=== PATIENT | male | born 1935 | race Caucasian/White ===

== ENCOUNTER 2016-05-28 18:56 | Emergency (ER) | payer OTHER ==
[~2016-05-28] VITALS: Ht 177.8 cm; Wt 73.7 kg
[~2016-05-28 18:56] MED LIST: ADVAIR 100/501 DISK IH; APRISO0.375 GM PO; ATORVASTATIN CA80 MG PO; AUGMENTIN875 MG PO; BUDESONIDE EC3 MG PO; CELEBREX200 MG PO; DAILY VALUE1 EACH PO; DESYREL100 MG PO; ENDOCET 5-3251 EACH PO; FISH OIL 1,001000 M1 PO; FOLIC ACID1 MG PO; MAGNESIUM CITR100 MG PO; PLAVIX75 MG PO; PROTONIX40 MG PO; SPIRIVA1 INHALATI IH; TAMSULOSIN HCL0.4 MG PO; VASOTEC20 MG PO; VITAMIN E400 UNIT PO
[2016-05-28 20:55] LABS: HEMATOCRIT 41.6 % (38.0-50.0); MCH 33.2 PG (29.0-34.0); MCHC 34.9 G/DL (30.0-36.0); MCV 95.2 FL (86-99); MEAN PLAT.VOLUME 11.9 uM^3 (9.0-12.4); PLATELET COUNT 142 K/uL (156-360); RBC DIS.WIDTH-CV 13.4 % (11.8-14.6); RBC DIS.WIDTH-SD 44.3 % (39-53); RED BLOOD COUNT 4.37 M/uL (4.00-5.50); WHITE BLOOD COUNT 10.2 K/uL (4.1-10.2)
[2016-05-28 21:04] LABS: CHLORIDE 104 mEq/L (99-109); POTASSIUM 3.9 mEq/L (3.7-5.4); SODIUM 139 mEq/L (136-147)
[2016-05-28 21:06] LABS: GLUCOSE 107 mg/dL (70-99)
[2016-05-28 21:07] LABS: ANION GAP 12 MEQ/L (2-14)
[2016-05-28 21:10] LABS: GFR ESTIMATE (CALCULATED) 57 mL/min/
[2016-05-28 21:11] LABS: UREA NITROGEN (BUN) 21 mg/dL (9-23)
[2016-05-28 22:27] VITALS: BP 125/68
== END 2016-05-28 22:29 | disposition home or self-care (01) ==
LOC: EME 18:56
PROVIDERS: Emergency Medicine
DX: L03.116 Cellulitis of left lower limb (principal); E86.0 Dehydration; I10 Essential (primary) hypertension; J44.9 Chronic obstructive pulmonary disease, unspecified; F17.200 Nicotine dependence, unspecified, uncomplicated; Z86.73 Personal history of transient ischemic attack (TIA), and cerebral infarction without residual deficits; Z88.7 Allergy status to serum and vaccine
CPT/HCPCS: 80048; 83605; 85027; 87040; 93005; 99281; 99285; J7030